=== PATIENT | female | born 1945 | race Caucasian/White ===

== ENCOUNTER 2024-05-21 17:26 | Emergency (ER) | payer MEDICARE, OTHER ==
[~2024-05-21] VITALS: Ht 160 cm; Wt 75.5 kg
[2024-05-21 17:48] VITALS: BP 106/56; PULSE 93; RESP 18; O2SAT 96
== END 2024-05-21 22:31 | disposition left against medical advice (07) ==
LOC: ER 17:26
DX: S09.8XXA Other specified injuries of head, initial encounter (principal); Z79.01 Long term (current) use of anticoagulants; Z88.1 Allergy status to other antibiotic agents; W18.39XA Other fall on same level, initial encounter; Y93.89 Activity, other specified; Y92.89 Other specified places as the place of occurrence of the external cause; Y99.8 Other external cause status
CPT/HCPCS: 70450

== ENCOUNTER 2024-05-25 12:31 | Emergency (ER) | payer OTHER ==
[~2024-05-25] VITALS: Ht 172.7 cm; Wt 81.8 kg
[2024-05-25 12:45] VITALS: PULSE 94; RESP 16; O2SAT 93
[2024-05-25 13:42] LABS: Basophils # (auto) 0 10 ^3/uL (0-0.2); Basophils % (auto) 0.4 % (0.0-2.0); Eosinophils # (auto) 0.1 10 ^3/uL (0-0.8); Eosinophils % (auto) 1.8 % (0.0-7.0); Hematocrit 36.6 % (36.0-46.0); Hemoglobin 12.5 g/dL (12.2-16.2); Lymphocytes % (auto) 12.8 % (10.0-50.0); Mean Corpuscular Hemoglobin 31.8 pg (28.0-32.0); Mean Corpuscular Volume 93.4 fL (80.0-100.0); Monocytes # (auto) 0.6 10 ^3/uL (0-1.3); Neutrophils # (auto) 6.1 10 ^3/uL (1.6-8.6); Platelet Count (auto) 281 10^3/uL (140-450); Red Blood Cells 3.92 10^6/uL (4.0-5.20); Red Cell Distribution Width 16.2 % (11.8-14.3); White Blood Cell 7.9 10^3/uL (4.4-10.8)
[2024-05-25 13:43] LABS: Urine Bacteria FEW /hpf (None Seen); Urine Blood 3+ /uL (Negative); Urine Clarity Turbid (Clear); Urine Color Colorless (Yellow); Urine Hyaline Cast FEW /lpf (0 - 2); Urine Mucus FEW (None Seen); Urine Protein, UAD 1+ (Negative); Urine Specific Gravity 1.011 (1.001-1.035); Urine Urobilinogen Normal (Negative); Urine WBC 609 /hpf (0 - 5); Urine pH 6.5 (5.0-9.0)
[2024-05-25 13:48] LABS: Chloride 110 mmol/L (98-107); Potassium 5.2 mmol/L (3.5-5.1); Sodium 144 mmol/L (136-145)
[2024-05-25 13:49] LABS: Anion Gap 5 (5-15); Carbon Dioxide 29 mmol/L (20-31)
[2024-05-25 13:50] LABS: Calcium 9.8 mg/dL (8.7-10.4)
[2024-05-25 13:54] LABS: Glucose 99 mg/dL (74-106)
[2024-05-25 13:55] LABS: BUN/Creatinine Ratio 13.7 (10.0-20.0); Blood Urea Nitrogen 14 mg/dL (9-23)
[2024-05-25] MEDS ORDERED: LEVO500T91 PO (17:30)
[2024-05-25] MEDS: cefTRIAXone 1GM/50ML D5W 50 ML IV ONE (18:33)
[2024-05-25] MEDS: SODIUM CHLORIDE 0.9% 500 ML IV ONE (18:38)
[2024-05-25] MEDS: HYDROcodone-ACET 5/325MG TAB PO ONE (21:20)
[2024-05-25 21:30] VITALS: PULSE 93; RESP 19; O2SAT 93
[2024-05-26 07:45] VITALS: PULSE 65; RESP 16; O2SAT 95
[2024-05-27] MEDS ORDERED: ATORVASTATIN 20 MG TAB PO ONE (11:45)
[2024-05-27] MEDS ORDERED: LISINOPRIL 5 MG TAB PO ONE ×2 (11:45→13:15)
[2024-05-27] MEDS ORDERED: amLODIPine BESYLATE 5 MG TAB PO ONE (11:45)
[2024-05-27] MEDS: amLODIPine BESYLATE 5 MG TAB PO ONE (13:06)
[2024-05-27] MEDS: ATORVASTATIN 20 MG TAB PO ONE (13:06)
[2024-05-27] MEDS ORDERED: APIX5TAB PO (15:41)
[2024-05-27] MEDS ORDERED: ATOR20TA50 PO (15:41)
[2024-05-27 19:38] VITALS: BP 129/46; PULSE 79; RESP 20; TEMP 98.3; O2SAT 92
[2024-05-27] MEDS ORDERED: APIXABAN 5 MG TAB PO SCH (22:00)
[2024-05-28] MEDS ORDERED: levoFLOXacin 500 MG TAB PO SCH (10:00)
== END 2024-05-27 21:44 ==
LOC: ER 12:31 → EDBD 12:31 → ER 17:16
DX: S50.311A Abrasion of right elbow, initial encounter (principal); N39.0 Urinary tract infection, site not specified; E87.5 Hyperkalemia; W19.XXXA Unspecified fall, initial encounter; Y93.E1 Activity, personal bathing and showering; Y92.89 Other specified places as the place of occurrence of the external cause; Y99.8 Other external cause status
CPT/HCPCS: 36415; 71045; 80048; 81001; 84484; 85025; 96365; 97163; 99285; J0696

== ENCOUNTER 2024-06-20 16:56 | Emergency (ER) | payer OTHER ==
[~2024-06-20] VITALS: Ht 165.1 cm; Wt 70.0 kg
[~2024-06-20 16:56] MED LIST: APIX5TAB PO; ATOR20TA50 PO; LEVO500T91 PO
--- NOTE | 2024-06-20 17:57 | ED.PDOC ---
HPI Comments PMHx: HTN, HLD, COPD, PE, UTI, kidney stones, osteoarthritis PSHx: Unknown. Social hx: No alcohol, illicit drug, or tobacco use. Meds: Lisinopril, Amlodipine, Atorvastatin, Eliquis, ASA Allergies: NKDA. Vitals T: 98.6F RR: 20 HR: 60 BP: 176/125 O2: 95% on RA HPI: Poor Historian. 79-year-old female brought in by ambulance from home for evaluation of chest pain that is nonspecific nonradiating without any specific associated symptoms. Upon arrival patient points to different parts of her joints that are hurting with a history of arthritis but these are not acute. Denies any dizziness shortness of breath or radiation. REVIEW OF SYSTEMS: CONSTITUTIONAL: Denies acute: fever, diaphoresis, chills, HEAD: Denies acute: headache, photophobia Eyes: Denies acute: Double vision, vision loss, eye pain, eye discharge. EARS: Denies acute: tinnitus, hearing loss, ear discharge, ear pain, THROAT: Denies acute: sore throat, swelling, difficulty swallowing , pain with swall owing, change in voice. NECK: Denies acute: neck pain, neck swelling, stiff neck. HEART: Denies acute : palpitations, LUNGS: Denies acute: SOB, wheezing, cough, hemoptysis ABDOMEN: Denies acute: abdominal pain, Nausea, Vomiting, diarrhea, melena , hematemesis, hematochezia SKIN: Denies acute: rash, redness, lesions, itchiness. EXTREMITIES: Denies acute: calf pain, numbness, tingling, weakness, denies pain in extremity. Denies acute: Low back pain. Neuro: Denies acute: focal neurological deficit, motor or sensory focal neurological deficit, tremors, seizure like activity, confusion, dizziness, change in mental status, loss of bowel or bladder function, cauda equina like symptoms. : Denies acute: dysuria, hematuria, flank pain, increase in urinary frequency. PSYCH: Denies acute: hallucination, suicidal ideation, homicidal ideation. FEMALE: Denies acute: abnormal vaginal bleeding, foul odor, unusual discharge. PHYSICAL EXAM: General: no acute distress, awake and alert. Head: normocephalic, atraumatic. Neck: supple, trachea is midline, no swelling. Throat: Normal phonation. Eyes:, no erythema, no purulent discharge, no proptosis, no icterus. Heart: regular rate, regular rhythm, no significant murmur appreciated. Lungs: no apparent respiratory distress, Able to speak in full sentences. No wheezing, no rhonchi, no crackles. No stridors Clear to auscultation bilaterally. Abdomen: non tender to palpation, non distended, soft, no guarding, no rebound, + bowel sounds. Neuro: Awake, Alert, oriented to name, self, situation, follows commands GCS=15. Speech is normal. Skin: no petechia, no purpura, no cyanosis, non-pale, not jaundice. Lower extremities: --no - Pitting edema no deformity, no focal swelling, no calf TTP. Makes eye contact. moves all four extremities. Face: no apparent facial droop. Chief Complaint: Chest Pain Time Seen by MD: 17:35 Primary Care Provider: UNKNOWN Reviewed Notes: Nurses Notes, Senior Accounting Analyst Notes, Medications, Allergies Allergies: Coded Allergies: Cephalosporins (Verified Allergy, Mild, 07/28/09) Home Meds Active Scripts Atorvastatin Calcium (ATORVASTATIN CALCIUM) 20 Mg Tab, 20 MG PO DAILY for 30 Days, #30 TAB 0 Refills Prov:LISA LAZAR DO 05/27/24 Apixaban Base (ELIQUIS) 5 Mg Tab, 5 MG PO BID for 30 Days, #60 TAB 0 Refills Prov:LISA LAZAR DO 05/27/24 Levofloxacin Hemihydrate (LEVAQUIN 500 MG) 500 Mg Tab, 1 TAB PO DAILY, #7 TAB Prov:HENRIK CERVANTES MD 05/25/24 Information Source: Patient, Emergency Med Personnel Mode of Arrival: EMS Brought in by: EMS Severity: Mild Timing: Hours Duration: Since onset Prehospital treatment: 12 Lead EKG Location: Substernal Radiation: Abdomen, Back, Neck Quality: Sharp Onset: At Rest Cardiac Risk Factors: Hyperlipidemia, HTN PE Risk Factors: None History of: None Modifying Factors: Nothing Associated Signs and Symptoms: Abdominal Pain, Other Past Medical History PAST MEDICAL HISTORY: COPD, High Lipids, HTN, Kidney Stones, PE, UTI'S Past Medical History (Other): Osteoarthritis Surgical History: Unknown PARISH VISITOR History: No Pertinent PARISH VISITOR History Family History Family History: Reviewed,noncontributory to illness, No family hx of Cancer, No family hx of DM, No family hx of Heart bert, No family hx of HTN, No family hx ofKidney bert, No family hx of Liver bert, No family hx of Lung bert, No family hx of Stroke Social History Smoker: Non-Smoker Alcohol: Denies ETOH Use Drugs: Denies Drug Use Lives In: Home Was a procedure done? Was a procedure done?: No CP Differential Dx Differential Diagnosis: N/A Differential Diagnosis: Other (Ddx include but not limitied to gastritis, musculoskeletal pain, radiculopathy, atypical chest pain, dissection, aneurysm, ACS, unstable angina, hiatal hernia, GERD, anxiety, costochondritis, PE, pneumothroax, neoplasm, cardiac ischemia, drug abuse, anemia.) X-Ray, Labs, Meds, VS Vital Signs Date Time Temp Pulse Resp B/P (MAP) Pulse Ox O2 Delivery O2 Flow Rate FiO2 06/20/24 22:15 165/81 06/20/24 21:49 75 26 152/76 (101) 96 06/20/24 20:37 72 06/20/24 16:57 67 06/20/24 16:56 98.6 60 20 170/125 (140) 95 Lab Test 06/20/24 21:07 06/20/24 18:53 Range/Units Troponin I High Sensitivity 15 17 </=34 ng/L White Blood Count 5.5 4.4-10.8 10^3/uL Red Blood Count 3.78 L 4.0-5.20 10^6/uL Hemoglobin 11.9 L 12.2-16.2 g/dL Hematocrit 35.6 L 36.0-46.0 % Mean Corpuscular Volume 94.1 80.0-100.0 fL Mean Corpuscular Hemoglobin 31.4 28.0-32.0 pg Mean Corpuscular Hemoglobin Concent 33.3 32.0-36.0 g/dL Red Cell Distribution Width 15.7 H 11.8-14.3 % Platelet Count 274 140-450 10^3/uL Mean Platelet Volume 7.5 6.9-10.8 fL Neutrophils (%) (Auto) 53.3 37.0-80.0 % Lymphocytes (%) (Auto) 33.0 10.0-50.0 % Monocytes (%) (Auto) 10.6 0.0-12.0 % Eosinophils (%) (Auto) 2.7 0.0-7.0 % Basophils (%) (Auto) 0.4 0.0-2.0 % Neutrophils # (Auto) 2.9 1.6-8.6 10 ^3/uL Lymphocytes # (Auto) 1.8 0.4-5.4 10 ^3/uL Monocytes # (Auto) 0.6 0-1.3 10 ^3/uL Eosinophils # (Auto) 0.1 0-0.8 10 ^3/uL Basophils # (Auto) 0 0-0.2 10 ^3/uL Nucleated Red Blood Cells 0.0 % Sodium Level 145 136-145 mmol/L Potassium Level 4.3 3.5-5.1 mmol/L Chloride Level 111 H 98-107 mmol/L Carbon Dioxide Level 27 20-31 mmol/L Anion Gap 7 5-15 Blood Urea Nitrogen 21 9-23 mg/dL Creatinine 0.74 0.550-1.02 mg/dL Glomerular Filtration Rate Calc 81 >90 mL/min BUN/Creatinine Ratio 28.4 H 10.0-20.0 Serum Glucose 97 74-106 mg/dL Calcium Level 9.1 8.7-10.4 mg/dL Total Bilirubin 0.2 0.2-1.0 mg/dL Aspartate Amino Transferase (AST) 30 13-40 U/L Alanine Aminotransferase (ALT) 21 7-40 U/L Alkaline Phosphatase 91 46-116 U/L B-Type Natriuretic Peptide 87.49 0-100 pg/mL Total Protein 6.4 5.7-8.2 g/dL Albumin 3.5 3.2-4.8 g/dL Current Medications Medications (Trade) Dose Ordered Sig/Tasia Route Start Time Stop Time Status Last Admin Nitroglycerin (Ntrostat Sublingual) 0.4 mg ONCE ONCE SL 06/20/24 21:00 06/20/24 21:05 DC 06/20/24 22:[address] [address] Ph: [phone] DIAGNOSTIC IMAGING Diagnostic Imaging Report : [id number] Signed PATIENT: MYA LEVY ACCT: [id number] UNIT: [id number] : 1945 LOC: ER ROOM / BED: / AGE / SEX: 79 / F ADM STATUS: REG ER SERVICE [id number] ORDERING PHYSICIAN: EVITA WASHINGTON DO PROCEDURE(s): CXRP - CHEST PORTABLE REASON: cp ORDER NUMBER(s): [id number], ACCESSION NUMBER(s): [id number] CHEST RADIOGRAPH Indication: cp Technique: Single frontal view of the chest was obtained Comparison: XY CHEST PORTABLE on DOS: 05/25/24 FINDINGS: Lines and Tubes: None Lungs: Linear densities over the right lung base. Bronchovascular crowding due to low lung volumes. Pleura: No effusion. No pneumothorax. Cardiomediastinal contours: Mild cardiomegaly. Bones: No acute osseous abnormality. IMPRESSION: Right basilar atelectasis. Otherwise, no evidence of acute cardiopulmonary disease. ATED BY: SOPHIE GAXIOLA DO DICTATED DATE/TIME: 06/20/241836 SIGNED BY: SOPHIE GAXIOLA DO SIGNED DATE/TIME: 06/20/241836 CC: Time of 1ST Reevaluation: 18:05 Reevaluation 1ST: Unchanged Time of 2ND Reevaluation: 20:57 (The case was discussed with the admitting team (HPI, physical exam, labs and diagnostic tests that were available at the time of disposition, ED course, treatment plan) on the phone. They agreed to evaluate the patient and make appropriate disposition. Please see their consultation notes. Dr. Metzger) Patient Education/Counseling: Diagnosis, Treatment Family Education/Counseling: No Family Present Comments Patient presented with the above HPI.--cardiac----workup was initiated. patient was found with the above mentioned diagnosis. Patient was given: Nitroglycerin for blood pressure. Patient ED course and VS have been stabilized. Patient has been reassessed in the ED and remained in a stable condition. Pertinent incidental findings were discussed with the patient and/or family. Patient/family voices understanding and is agreeable with plan. Patient has been observed in the ED adequate length of time to insure improvement/stability. patient was admitted to the medicine team for further evaluation and treatment of their presentation. However later I found out that Dr. Metzger the hospitalist discharge the patient home. Please see her consultation and discharge instructions and recommendations for the patient. All the reports of any imaging studies that were ordered by myself were reviewed by myself. Departure 1 Departure Time of Disposition: 18:37 Impression: Primary Impression: Chest pain Disposition: 09 ADMITTED INPATIENT Admit to: Tele Condition: Guarded Discharged With: Self Critical Care Note Critical Care Time?: No Heart Score Heart Score: Heart Score Response (Comments) Value History Slightly Suspicious 0 EKG Normal 0 Age >65 2 Risk Factors >3 or Hx ASHD 2 Troponin Normal limit 0 Total 4 I personally scribed for EVITA WASHINGTON DO ([email or web address]) on 06/20/24 at 17:57. Electronically submitted by Beth Goodman ([email or web address]). I personally scribed for EVITA WASHINGTON DO ([email or web address]) on 06/20/24 at 18:02. Electronically submitted by Beth Goodman ([email or web address]). I personally scribed for EVITA WASHINGTON DO ([email or web address]) on 06/20/24 at 19:07. Electronically submitted by Beth Goodman ([email or web address]). EVITA WASHINGTON DO Jun 20, 2024 17:57
--- NOTE | 2024-06-20 18:39 | DVH ---
CHEST RADIOGRAPH Indication: cp Technique: Single frontal view of the chest was obtained Comparison: XY CHEST PORTABLE on DOS: 05/25/24 FINDINGS: Lines and Tubes: None Lungs: Linear densities over the right lung base. Bronchovascular crowding due to low lung volumes. Pleura: No effusion. No pneumothorax. Cardiomediastinal contours: Mild cardiomegaly. Bones: No acute osseous abnormality. IMPRESSION: Right basilar atelectasis. Otherwise, no evidence of acute cardiopulmonary disease.
[2024-06-20 19:40] LABS: Basophils # (auto) 0 10 ^3/uL (0-0.2); Basophils % (auto) 0.4 % (0.0-2.0); Eosinophils # (auto) 0.1 10 ^3/uL (0-0.8); Eosinophils % (auto) 2.7 % (0.0-7.0); Hematocrit 35.6 % (36.0-46.0); Hemoglobin 11.9 g/dL (12.2-16.2); Lymphocytes # (auto) 1.8 10 ^3/uL (0.4-5.4); Mean Corpuscular Hemoglobin 31.4 pg (28.0-32.0); Mean Corpuscular Hgb Conc. 33.3 g/dL (32.0-36.0); Mean Corpuscular Volume 94.1 fL (80.0-100.0); Monocytes # (auto) 0.6 10 ^3/uL (0-1.3); Monocytes % (auto) 10.6 % (0.0-12.0); Neutrophils # (auto) 2.9 10 ^3/uL (1.6-8.6); Neutrophils % (auto) 53.3 % (37.0-80.0); Platelet Count (auto) 274 10^3/uL (140-450); Red Blood Cells 3.78 10^6/uL (4.0-5.20); Red Cell Distribution Width 15.7 % (11.8-14.3); White Blood Cell 5.5 10^3/uL (4.4-10.8)
[2024-06-20 19:52] LABS: Alanine Aminotransferase 21 U/L (7-40); Albumin 3.5 g/dL (3.2-4.8); Alkaline Phosphatase 91 U/L (46-116); Anion Gap 7 (5-15); Aspartate Aminotransferase 30 U/L (13-40); BUN/Creatinine Ratio 28.4 (10.0-20.0); Bilirubin, Total 0.2 mg/dL (0.2-1.0); Blood Urea Nitrogen 21 mg/dL (9-23); Calcium 9.1 mg/dL (8.7-10.4); Carbon Dioxide 27 mmol/L (20-31); Chloride 111 mmol/L (98-107); Glucose 97 mg/dL (74-106); Potassium 4.3 mmol/L (3.5-5.1); Sodium 145 mmol/L (136-145); Total Protein 6.4 g/dL (5.7-8.2)
[2024-06-20 21:49] VITALS: PULSE 75; RESP 26; TEMP 98.2; O2SAT 96
[2024-06-20] MEDS: hydrALAZINE HCL 25 MG TAB PO ONE (22:00)
[2024-06-20] MEDS: NITROGLYCERIN 0.4 MG SL TAB SL ONE (22:15)
[2024-06-20 23:19] VITALS: BP 129/69; PULSE 115; RESP 12; O2SAT 99
--- NOTE | 2024-06-21 10:58 | ECG ---
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
--- NOTE | 2024-06-21 11:01 | ECG ---
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
--- NOTE | 2024-06-21 20:31 | DVHDS2 ---
Physician Discharge Progress N Final Diagnosis: HTN, ACS ruled out Operations or Procedures: Operations or Procedures none Other Interventions Other Interventions CXR, EKG, Lab results Consultations: Consultations none Commentary: Commentary 79 y.o. female with COPD, HTN, dementia, osteoarthritis arrived to the ED c/o intermittent chest pain for a few days. Chest pain was substernal, 3/10, nonradiating. Patient denies SOB, lightheadedness, fever and other symptoms. In the ED her CXR and EKG had no acute findings. Troponin was within normal limit 2 times. Other lab results were unremarkable. Patient arrived in stable condition and remained stable during the hospital stay. Patient was discharged and given instructions to follow up with her PMD and inspector cold working. Condition on Discharge: Stable Disposition: Home Discharge Instructions: Diet: Cardiac 2g Na,low cholest Activity: No Restrictions, As Tolerated Follow Up/Referral: Cardiology outpatient to be scheduled by [facility] and coordinated with the patient Medications: Continue home medications Follow Up Care: Discharge Statement: "Patient was advised to return to the ER or call 911 if any headaches, dizziness, shortness of breath, chest pain, abdominal pain, bleeding, fevers, or worsening of medical condition. Patient was counseled about treatment plan, medications, possible side effects, patientverbalized understanding. All questions were answered to the best of my ability. This discharge took greater then 30 minutes in planning, reviewing documentat ion, counseling the patient, and discussing with other team members." ROSY DORSEY MD Jun 21, 2024 20:31
== END 2024-06-20 23:37 | disposition home or self-care (01) ==
LOC: EDBD 16:56 → ER 16:56
DX: R07.9 Chest pain, unspecified (principal); I10 Essential (primary) hypertension; E78.5 Hyperlipidemia, unspecified; F03.90 Unspecified dementia, unspecified severity, without behavioral disturbance, psychotic disturbance, mood disturbance, and anxiety; J44.9 Chronic obstructive pulmonary disease, unspecified; R06.02 Shortness of breath; M19.90 Unspecified osteoarthritis, unspecified site; Z79.899 Other long term (current) drug therapy; Z87.440 Personal history of urinary (tract) infections; Z87.442 Personal history of urinary calculi; Z88.1 Allergy status to other antibiotic agents
CPT/HCPCS: 36415; 71045; 80053; 83880; 84484; 85025; 93005

== ENCOUNTER 2024-06-30 15:07 | Emergency (ER) | payer OTHER ==
[~2024-06-30] VITALS: Ht 167.6 cm; Wt 73.0 kg
--- NOTE | 2024-06-30 15:22 | ED.PDOC ---
History of Present Illness HPI Comments 79 y.o female with PMH of HTN, HLD, COPD, PE, UTI, Kidney stones, and osteoarthritis, presents to the ED via EMS for an evaluation of failure to thrive. EMS reports patient lives with daughter who is not properly taking care of her at home. Patient complains of substernal, non radiating chest and abdominal pain pain that started 2 days ago, rating a 6/10 on the pain scale. Patient was initially hypertension on scene with blood pressure of 206 systolic. Per EMS, patient is alert and oriented x 2. Time Seen by MD: 15:15 Primary Care Provider: UNKNOWN Reviewed Notes: Nurses Notes, Manager Electronic Notes, Medications, Allergies Allergies: Coded Allergies: Cephalosporins (Verified Allergy, Mild, 07/28/09) Home Meds Active Scripts Atorvastatin Calcium (ATORVASTATIN CALCIUM) 20 Mg Tab, 20 MG PO DAILY for 30 Days, #30 TAB 0 Refills Prov:LISA LAZAR DO 05/27/24 Apixaban Base (ELIQUIS) 5 Mg Tab, 5 MG PO BID for 30 Days, #60 TAB 0 Refills Prov:LISA LAZAR DO 05/27/24 Levofloxacin Hemihydrate (LEVAQUIN 500 MG) 500 Mg Tab, 1 TAB PO DAILY, #7 TAB Prov:HENRIK CERVANTES MD 05/25/24 Information Source: Patient, Emergency Med Personnel Mode of Arrival: EMS Severity: Moderate Timing: Days (2) Duration: Since onset Prehospital treatment: None Past Medical History PAST MEDICAL HISTORY: COPD, High Lipids, HTN, Kidney Stones, PE, UTI'S Surgical History: Unknown [employer] History: No Pertinent [employer] History Family History Family History: Reviewed,noncontributory to illness, No family hx of Cancer, No family hx of DM, No family hx of Heart bert, No family hx of HTN, No family hx ofKidney bert, No family hx of Liver bert, No family hx of Lung bert, No family hx of Stroke Social History Smoker: Non-Smoker Alcohol: Denies ETOH Use Drugs: Denies Drug Use Lives In: Home Constitutional: reports: weakness; denies: chills, diaphoresis, fatigue, fever, malaise, sweats, others EENTM: denies: blurred vision, double vision, ear bleeding, ear discharge, ear drainage, ear pain, ear ringing, eye pain, eye redness, hearing loss, mouth pain, mouth swelling, nasal discharge, nose bleeding, nose congestion, nose pain, photophobia, tearing, throat pain, throat swelling, voice changes, others Respiratory: denies: cough, hemoptysis, orthopnea, SOB at rest, shortness of breath, SOB with excertion, stridor, wheezing, others Cardiovascular: reports: chest pain; denies: dizzy spells, diaphoresis, Dyspnea on exertion, edema, irregular heart beat, left arm pain, lightheadedness, palpitations, PND, syncope, others Gastrointestinal: reports: abdominal pain; denies: abdomen distended, blood streaked bowels, constipated, diarrhea, dysphagia, difficulty swallowing, hematemesis, melena, nausea, poor appetite, poor fluid intake, rectal bleeding, rectal pain, vomiting, others Genitourinary: denies: abnormal vagina bleeding, burning, dyspareunia, dysuria, flank pain, frequency, hematuria, incontinence, pain, , vagina discharge, urgency, others Neurological: denies: dizziness, fainting, headache, left sided numbness, left sided weakness, numbness, paresthesia, pre-existing deficit, right sided numbness, right sided weakness, seizure, speech problems, tingling, tremors, weakness, others Musculoskeletal: denies: back pain, gout, joint pain, joint swelling, muscle pain, muscle stiffness, neck pain, others Integumetry: denies: bruises, change in color, change in hair/nails, dryness, laceration, lesions, lumps, rash, wounds, others Allergic/Immunocompromised: denies: Difficulty Healing, Frequent Infections, Hives, Itching, others Hematologic/Lymphatic: denies: anemia, blood clots, easy bleeding, easy br uising, swollen glands, others Endocrine: denies: excessive hunger, excessive sweating, excessive thirst, excessive urination, flushing, intolerance to cold, intolerance to heat, unexplained weight gain, unexplained weight loss, others Psychiatric: denies: anxiety, bipolar disorder, depression, hopeless, panic disorder, schizophrenia, sleepless, suicidal, others Unable to Obtain due to: Altered Mental Status, Dementia, Other (Failure to thrive, abusive home assistance) All Other Systems: Reviewed and Negative Physical Exam Exam Comments Patient appears to be in poor overall health and smelled of feces and urine. General Appearance: Mild Distress (Patient appears to be in moderate distress due to her complaints as well as fears of her home life.), Normal HEENT: Head (Cranial exam was unremarkable. No signs of trauma. No skull depressions or deformities.), Normal ENT Inspection, Pharynx Normal, TMs Normal Neck: Full Range of Motion, Non-Tender, Normal, Normal Inspection Respiratory: Chest Non-Tender, Lungs Clear, No Accessory Muscle Use, No Respiratory Distress, Normal Breath Sounds Cardiovascular: No Edema, No JVD, No Murmur, No Gallop, Normal Peripheral Pul ses, Regular Rate/Rhythm Breast Exam: Deferred Gastrointestinal: No Organomegaly, Non Tender, No Pulsatile Mass, Normal Bowel Sounds, Soft Genitalia: Deferred Pelvic: Deferred Rectal: Deferred Extremities: Normal capillary refill, No pedal edema Neurologic: Alert, No Motor Deficits, No Sensory Deficits Cerebellar Function: NOT DONE Reflexes: NOT DONE Skin: Dry, Normal Color, Warm Lymphatic: No Adenopathy Was a procedure done? Was a procedure done?: No Differential Dx Considerations may include: Dehydration, Electrolyte imbalance, Angina, Anxiety, Gastrointestinal, pneumonia, sepsis X-Ray, Labs, Meds, VS Vital Signs Date Time Temp Pulse Resp B/P (MAP) Pulse Ox O2 Delivery O2 Flow Rate FiO2 07/01/24 17:00 87 18 122/56 (78) 98 07/01/24 16:00 90 18 150/54 (86) 98 07/01/24 15:00 74 18 154/76 (102) 98 07/01/24 14:27 181/80 07/01/24 14:00 73 19 181/80 (113) 98 07/01/24 12:30 68 19 156/69 (98) 98 07/01/24 09:38 186/97 07/01/24 08:08 97.9 70 16 181/75 (110) 97 97.9 07/01/24 08:08 70 16 97 Room Air* 0 21 07/01/24 06:00 58 18 164/78 (106) 96 07/01/24 04:00 59 20 120/75 (90) 93 07/01/24 02:42 63 19 112/73 (86) 96 07/01/24 01:10 98.5 61 12 168/81 (110) 96 98.5 07/01/24 01:10 67 12 96 Room Air* 0 21 06/30/24 20:56 97.9 74 20 130/97 (108) 95 97.9 06/30/24 15:57 97.7 73 17 154/84 (107) 100 97.7 06/30/24 15:57 73 17 100 Room Air 06/30/24 15:56 154/84 06/30/24 15:20 98.7 76 16 155/68 (97) 98 Lab Test 07/01/24 14:36 06/30/24 19:38 06/30/24 17:37 06/30/24 16:35 Range/Units Urine Color Colorless Yellow Urine Clarity Turbid H Clear Urine pH 6.5 5.0-9.0 Urine Specific [place] 1.008 1.001-1.035 Urine Protein Trace H Negative Urine Ketones Negative Negative Urine Blood 2+ H Negative /uL Urine Nitrite Negative Negative Urine Bilirubin Negative Negative Urine Urobilinogen Normal Negative mg/dL Urine Leukocyte Esterase 3+ Negative /uL Urine RBC 28 0 - 4 /hpf Urine WBC 266 0 - 5 /hpf Urine Squamous Epithelial Cells Few <5 /hpf Urine Bacteria None seen None Seen /hpf Urine Glucose Normal Normal mg/dL Troponin I High Sensitivity 24 25 </=34 ng/L White Blood Count 5.5 4.4-10.8 10^3/uL Red Blood Count 3.60 L 4.0-5.20 10^6/uL Hemoglobin 11.3 L 12.2-16.2 g/dL Hematocrit 34.6 L 36.0-46.0 % Mean Corpuscular Volume 96.3 80.0-100.0 fL Mean Corpuscular Hemoglobin 31.4 28.0-32.0 pg Mean Corpuscular Hemoglobin Concent 32.6 32.0-36.0 g/dL Red Cell Distribution Width 15.5 H 11.8-14.3 % Platelet Count 255 140-450 10^3/uL Mean Platelet Volume 7.1 6.9-10.8 fL Neutrophils (%) (Auto) 48.8 37.0-80.0 % Lymphocytes (%) (Auto) 36.2 10.0-50.0 % Monocytes (%) (Auto) 11.1 0.0-12.0 % Eosinophils (%) (Auto) 3.5 0.0-7.0 % Basophils (%) (Auto) 0.4 0.0-2.0 % Neutrophils # (Auto) 2.7 1.6-8.6 10 ^3/uL Lymphocytes # (Auto) 2.0 0.4-5.4 10 ^3/uL Monocytes # (Auto) 0.6 0-1.3 10 ^3/uL Eosinophils # (Auto) 0.2 0-0.8 10 ^3/uL Basophils # (Auto) 0 0-0.2 10 ^3/uL Nucleated Red Blood Cells 0.3 % Sodium Level 144 136-145 mmol/L Potassium Level 4.1 3.5-5.1 mmol/L Chloride Level 111 H 98-107 mmol/L Carbon Dioxide Level 25 20-31 mmol/L Anion Gap 8 5-15 Blood Urea Nitrogen 23 9-23 mg/dL Creatinine 0.92 0.550-1.02 mg/dL Glomerular Filtration Rate Calc 63 >90 mL/min BUN/Creatinine Ratio 25.0 H 10.0-20.0 Serum Glucose 84 74-106 mg/dL Lactic Acid Level 1.3 0.4-2.0 mmol/L Calcium Level 9.1 8.7-10.4 mg/dL Total Bilirubin 0.3 0.2-1.0 mg/dL Aspartate Amino Transferase (AST) 21 13-40 U/L Alanine Aminotransferase (ALT) 18 7-40 U/L Alkaline Phosphatase 69 46-116 U/L B-Type Natriuretic Peptide 160.00 0-100 pg/mL Total Protein 6.3 5.7-8.2 g/dL Albumin 3.7 3.2-4.8 g/dL Lipase 27 12-53 U/L Test 06/30/24 16:00 Range/Units Troponin I High Sensitivity 25 </=34 ng/L Current Medications Medications (Trade) Dose Ordered Sig/Tasia Route Start Time Stop Time Status Last Admin Ketorolac Tromethamine (Toradol Injection) 15 mg ONCE ONCE IV 07/01/24 03:00 07/01/24 03:01 DC 07/01/24 03:11 Hydralazine HCl (Apresoline Injection) 5 mg ONCE ONCE IV 07/01/24 09:15 07/01/24 09:16 DC 07/01/24 09:38 Acetaminophen (Tylenol Tablet) 650 mg ONCE ONCE PO 07/01/24 13:45 07/01/24 13:46 DC 07/01/24 14:01 Hydralazine HCl (Apresoline Injection) 2.5 mg ONCE ONCE IV 07/01/24 14:15 07/01/24 14:16 DC 07/01/24 14:27 Ondansetron HCl (Zofran) 4 mg ONCE ONCE IV 07/01/24 17:00 07/01/24 17:06 DC 07/01/24 17:11 EXAM: XY CHEST PORTABLE TECHNIQUE: Single frontal chest radiograph CLINICAL HISTORY: Chest pain COMPARISON: XY CHEST PORTABLE on DOS: 06/20/24, XY CHEST PORTABLE on DOS: Findings/Impression: Frontal chest radiograph demonstrates no acute osseous or superficial soft tissue abnormalities. The trachea is midline. Cardiomegaly with pulmonary vascular congestion versus bronchovascular crowding. No pneumothorax, pleural effusions, or consolidations. X-Ray, Labs, Meds, VS Comment All studies performed the ED were evaluated by me personally. Laboratories were unremarkable for any systemic process. Urine was pending at time of this note. Chest x-ray is remarkable for cardiomegaly with pulmonary vascular congestion. Patient will remain in the ED while urine results are pending. A social service consult has been placed to address safety concerns prior to discharge. Discussed the patient presentation and concerns with Dr. Chiang. She will review urine once returned and wait for social service consultation to evaluate a safe discharge. Time of 1ST Reevaluation: 01:58 Reevaluation 1ST: Improved Consultation: PCP, Cardiology Patient Education/Counseling: Diagnosis, Treatment Family Education/Counseling: Diagnosis, Treatment, No Family Present Departure 1 Departure Time of Disposition: 18:33 Impression: Primary Impression: Failure to thrive Qualified Codes: R62.7 - Adult failure to thrive Additional Impressions: Pulmonary vascular congestion Cardiomegaly Disposition: 03 USP FACILITY Condition: Fair Discharged With: Self ADDENDUM ADDENDUM I took over patient's care from Dr. Chiang. Patient has been awaiting social science instructor consult during my shift. At this time she has been seen by social work faculty member. Patient was on ED OBS There was concern about a possible APS case. At this time patient will be transferred to [facility]. Patient is stable at time of discharge. Critical Care Note Critical Care Time?: No Stability Stability form required: No I personally scribed for LUIS FERNANDO LEONARD PAC ([email or web address]) on 06/30/24 at 15:22. Electronically submitted by Sarah Barillas ([facility]). I personally scribed for LUIS FERNANDO LEONARD PAC ([employer]) on 06/30/24 at 19:12. Electronically submitted by Sarah Barillas ([facility]). LUIS FERNANDO LEONARD Jun 30, 2024 15:22 SUJATA NAIR MD Jul 01, 2024 18:33
[2024-06-30] MEDS: SODIUM CHLORIDE 0.9% 1,000 ML IV ONE (15:45)
[2024-06-30] MEDS: cloNIDine HCL 0.1 MG TAB PO ONE (15:56)
[2024-06-30 17:03] LABS: Basophils # (auto) 0 10 ^3/uL (0-0.2); Basophils % (auto) 0.4 % (0.0-2.0); Eosinophils # (auto) 0.2 10 ^3/uL (0-0.8); Eosinophils % (auto) 3.5 % (0.0-7.0); Hematocrit 34.6 % (36.0-46.0); Hemoglobin 11.3 g/dL (12.2-16.2); Lymphocytes % (auto) 36.2 % (10.0-50.0); Mean Corpuscular Hemoglobin 31.4 pg (28.0-32.0); Mean Corpuscular Hgb Conc. 32.6 g/dL (32.0-36.0); Mean Corpuscular Volume 96.3 fL (80.0-100.0); Monocytes # (auto) 0.6 10 ^3/uL (0-1.3); Monocytes % (auto) 11.1 % (0.0-12.0); Neutrophils # (auto) 2.7 10 ^3/uL (1.6-8.6); Neutrophils % (auto) 48.8 % (37.0-80.0); Nucleated Red Blood Cells % 0.3 %; Platelet Count (auto) 255 10^3/uL (140-450); Red Cell Distribution Width 15.5 % (11.8-14.3); White Blood Cell 5.5 10^3/uL (4.4-10.8)
[2024-06-30 17:19] LABS: Alanine Aminotransferase 18 U/L (7-40); Albumin 3.7 g/dL (3.2-4.8); Alkaline Phosphatase 69 U/L (46-116); Anion Gap 8 (5-15); Aspartate Aminotransferase 21 U/L (13-40); Blood Urea Nitrogen 23 mg/dL (9-23); Calcium 9.1 mg/dL (8.7-10.4); Carbon Dioxide 25 mmol/L (20-31); Glucose 84 mg/dL (74-106); Lipase 27 U/L (12-53); Potassium 4.1 mmol/L (3.5-5.1); Sodium 144 mmol/L (136-145)
[2024-06-30 17:20] LABS: Bilirubin, Total 0.3 mg/dL (0.2-1.0); Chloride 111 mmol/L (98-107); Total Protein 6.3 g/dL (5.7-8.2)
--- NOTE | 2024-06-30 17:30 | DVH ---
EXAM: XY CHEST PORTABLE TECHNIQUE: Single frontal chest radiograph CLINICAL HISTORY: Chest pain COMPARISON: XY CHEST PORTABLE on DOS: 06/20/24, XY CHEST PORTABLE on DOS: 05/25/24 Findings/Impression: Frontal chest radiograph demonstrates no acute osseous or superficial soft tissue abnormalities. The trachea is midline. Cardiomegaly with pulmonary vascular congestion versus bronchovascular crowdi ng. No pneumothorax, pleural effusions, or consolidations.
[2024-07-01 01:10] VITALS: PULSE 67; RESP 12; O2SAT 96
[2024-07-01] MEDS: KETOROLAC TROMETH 30 MG/ML 1ML VIAL IV ONE (03:11)
[2024-07-01 08:08] VITALS: PULSE 70; RESP 16; O2SAT 97
[2024-07-01] MEDS: hydrALAZINE HCL 20 MG/ML VL IV ONE ×2 (09:38→14:27)
[2024-07-01] MEDS: ACETAMINOPHEN 325 MG TAB PO ONE (14:01)
[2024-07-01 15:28] LABS: Urine Bacteria None Seen /hpf (None Seen)
[2024-07-01 15:56] LABS: Urine Blood 2+ /uL (Negative); Urine Clarity Turbid (Clear); Urine Color Colorless (Yellow); Urine Protein, UAD TRACE (Negative); Urine Specific Gravity 1.008 (1.001-1.035); Urine Urobilinogen Normal (Negative); Urine WBC 266 /hpf (0 - 5); Urine pH 6.5 (5.0-9.0)
[2024-07-01] MEDS: ONDANSETRON HCL 4 MG/2 ML VIAL IV ONE (17:11)
[2024-07-01 19:00] VITALS: BP 120/60; PULSE 76; RESP 20; TEMP 98.5; O2SAT 98
== END 2024-07-01 19:00 ==
LOC: ER 15:07 → EDBD 15:07 → ER 07-01 19:00
DX: I51.7 Cardiomegaly (principal); R62.7 Adult failure to thrive; R09.89 Other specified symptoms and signs involving the circulatory and respiratory systems; J44.9 Chronic obstructive pulmonary disease, unspecified; E78.5 Hyperlipidemia, unspecified; I10 Essential (primary) hypertension; Z87.442 Personal history of urinary calculi; Z88.8 Allergy status to other drugs, medicaments and biological substances; Z79.899 Other long term (current) drug therapy
CPT/HCPCS: 36415; 71045; 80053; 81001; 83605; 83690; 83880; 84484; 85025; 96361; 96374; 96375; 96376; 99285; J0360; J1885; J2405; J7030